=== PATIENT | male | born 1940 | race Caucasian/White ===

== ENCOUNTER 2016-09-04 10:23 | Emergency (ER) | payer MEDICARE ==
--- NOTE | 2016-09-04 10:54 | Emergency Department Record ---
History of Present Illness - General Chief Complaint: Abdominal Pain Stated Complaint: GALLBLADDER ATTACK Time Seen by Provider: 09/04/16 10:47 Source: Patient, RN notes reviewed Mode of Arrival: Ambulatory - History of Present Illness Initial Comments: abdominal pain located in the right upper quad and right flank pain and no cough no congestion. BM times three loose stools. Patient has been having right sided upper abd pain for two weeks and much worse last night . Patient having indigestion and lots of gas. Onset/Timin -: Days(s) Location: RUQ Radiation: Chest, Other Quality: Stabbing Consistency: Constant Improves With: Nothing Worsens With: Nothing Associated Symptoms: Diarrhea, Nausea, Vomiting - Related Data Home Medications Medication Instructions Recorded Confirmed Last Taken Amlodipine Besylate [Norvasc] 10 mg PO DAILY 10/06/14 09/04/16 09/03/16 Omeprazole [Prilosec] 20 mg PO DAILY 10/06/14 09/04/16 09/03/16 Pravastatin Sodium [Pravachol] 40 mg PO DAILY 09/04/16 09/04/16 09/03/16 Rivaroxaban [Xarelto] 20 mg PO DAILY 09/04/16 09/04/16 09/03/16 Sertraline HCl [Zoloft] 100 mg PO DAILY 09/04/16 09/04/16 09/03/16 Tramadol HCl 50 mg PO Q6H 09/04/16 09/04/16 09/03/16 Previous Rx's Medication Instructions Recorded Hydrocodone/Acetaminophen [[place] 1 tab PO Q6H PRN #20 tab 09/04/16 5mg/325mg] Allergies Allergy/AdvReac Type Severity Reaction Status Date / Time No Known Drug Allergies Allergy Verified 10/06/14 08:59 Travel Screening - Travel/Exposure Within Last 30 Days Have you traveled within the last 30 days?: No - Travel/Exposure Within Last Year Have you traveled outside the [place] in the last year?: No - Additonal Travel Details Have you been exposed to anyone with a communicable illness?: No - Travel Symptoms Symptom Screening: None Review of Systems Reviewed: No additional complaints except as noted below Constitutional: Reports: As per HPI. Denies: Chills, Fever, Malaise, Night sweats, Weakness, Weight change Eyes: Reports: As per HPI. Denies: Eye discharge, Eye pain, Photophobia, Vision change ENT: Reports: As per HPI. Denies: Congestion, Dental pain, Ear pain, Epistaxis , Hearing loss, Throat pain Respiratory: Reports: As per HPI. Denies: Cough, Dyspnea, Hemoptysis, Stridor, Wheezes Cardiovascular: Reports: As per HPI. Denies: Arrhythmia, Chest pain, Dyspnea on exertion, Edema, Murmurs, Orthopnea, Palpitations, Paroxysmal nocturnal dyspnea, Rheumatic Fever, Syncope Endocrine: Reports: As per HPI. Denies: Fatigue, Heat or cold intolerance, Polydipsia, Polyuria Gastrointestinal: Reports: As per HPI, Abdominal pain, Diarrhea, Nausea. Denies : Constipation, Hematemesis, Hematochezia, Melena, Vomiting Genitourinary: Reports: As per HPI. Denies: Dysuria, Frequency, Hematuria, Incontinence, Retention, Testicular pain, Testicular mass, Urgency Musculoskeletal: Reports: As per HPI. Denies: Arthralgia, Back pain, Gout, Joint swelling, Myalgia, Neck pain Skin: Reports: As per HPI. Denies: Bruising, Change in color, Change in hair/ nails, Lesions, Pruritus, Rash Neurological: Reports: As per HPI. Denies: Abnormal gait, Confusion, Headache, Numbness, Paresthesias, Seizure, Tingling, Tremors, Vertigo, Weakness Psychiatric: Reports: As per HPI. Denies: Anxiety, Auditory hallucinations, Depression, Homicidal thoughts, Suicidal thoughts, Visual hallucinations Hematological/Lymphatic: Reports: As per HPI. Denies: Anemia, Blood Clots, Easy bleeding, Easy bruising, Swollen glands Past Medical History - SOCIAL HISTORY Smoking Status: Never smoker Drug Use: None - RESPIRATORY Hx Respiratory Disorders: No - CARDIOVASCULAR Hx Cardio Disorders: Yes Hx Deep Vein Thrombosis: Yes (clots in legs) Hx Hypertension: Yes - NEURO Hx Neuro Disorders: No - GI Hx GI Disorders: Yes Hx Reflux: Yes Hx Hiatal Hernia: Yes - Hx Genitourinary Disorders: No - ENDOCRINE Hx Endocrine Disorders: Yes Hx Diabetes: Yes - MUSCULOSKELETAL Hx Musculoskeletal Disorders: Yes Hx Arthritis: Yes - PSYCH Hx Psych Problems: No - HEMATOLOGY/ONCOLOGY Hx Hematology/Oncology Disorders: No Family Medical History Any Significant Family History?: No Hx Heart Disease: Father Hx Stroke: Father Physical Exam - General General Appearance: Alert, Oriented x3, Cooperative, No acute distress - Head Head exam: Normal inspection - Eye Eye exam: Normal appearance, PERRL Pupils: Normal accommodation - ENT ENT exam: Normal exam, Mucous membranes moist, Normal external ear exam, Normal orophraynx, TM's normal bilaterally Ear exam: Normal external inspection. negative: External canal tenderness Nasal Exam: Normal inspection. negative: Discharge, Sinus tenderness Mouth exam: Normal external inspection, Tongue normal Teeth exam: Normal inspection. negative: Dental caries Throat exam: Normal inspection. negative: Tonsillar erythema, Tonsillar exudate - Neck Neck exam: Normal inspection, Full ROM. negative: Tenderness - Respiratory Respiratory exam: Normal lung sounds bilaterally. negative: Respiratory distress - Cardiovascular Cardiovascular Exam: Regular rate, Normal rhythm, Normal heart sounds - GI/Abdominal GI/Abdominal exam: Soft, Normal bowel sounds, Tenderness (right upper quad, right flank pain) - Rectal Rectal exam: Deferred - exam: Deferred - Extremities Extremities exam: Normal inspection, Full ROM, Normal capillary refill. negative: Tenderness - Back Back exam: Reports: Normal inspection, Full ROM. Denies: Muscle spasm, Rash noted, Tenderness - Neurological Neurological exam: Alert, Normal gait, Oriented X3, Reflexes normal - Psychiatric Psychiatric exam: Normal affect, Normal mood - Skin Skin exam: Dry, Intact, Normal color, Warm Course Vital Signs 09/04/16 10:26 Temperature 97.7 F Pulse Rate 78 Respiratory 20 Rate Blood Pressure 151/84 Pulse Ox 92 L - Reevaluation(s) Reevaluation #1: patient is feeling better 09/04/16 15:50 Medical Decision Making - Data Complexity MDM Data: Labs Ordered and/or Reviewed, X-Ray Ordered and/or Reviewed (sludge in gall bladder, CT of abd neg), EKG Ordered and/or Reviewed (No acute changes) - Lab Data Result diagrams: 09/04/16 10:50 09/04/16 10:50 Disposition Clinical Impression: Biliary colic Abdominal pain Qualifiers: Abdominal location: right upper quadrant Qualified Code(s): R10.11 - Right upper quadrant pain Disposition: Home, Self-Care Condition: (1) Good Instructions: Biliary Colic (ED) Additional Instructions: follow up with Dr. Garcia in one week return to ED if worse avoid fatty foods Prescriptions: Hydrocodone/Acetaminophen [[place] 5mg/325mg] 1 tab PO Q6H PRN #20 tab PRN Reason: Pain - General Forms: Patient Portal Access Time of Disposition: 15:47
[2016-09-04] MEDS: ONDANSETRON HCL IV 4 MG/2 ML VIAL IVP ONE (10:55)
[2016-09-04 11:14] LABS: BASO % 0.7 % (0-6); EOS % 1.5 % (0-6); GRAN % 68.5 % (47-80); HEMATOCRIT 45.8 % (42.0-52.0); LYMPH % 18.5 % (16-45); MEAN CELL VOLUME 93.7 fl (81-97); MEAN CORPUSCULAR HEMOGLOBIN 30.7 pg (27-33); MEAN CORPUSCULAR HGB CONC 32.8 g/dl (32-36); MEAN PLATELET VOLUME 9.2 fl (7.4-10.4); MONO % 10.8 % (0-9); PLATELET COUNT 219 K/uL (130-400); RED BLOOD COUNT 4.89 M/uL (4.40-5.70); RED CELL DISTRIBUTION WIDTH 13.6 % (11.5-14.5); WHITE BLOOD COUNT W/O DIFF 6.8 K/uL (4.2-12.2)
[2016-09-04] MEDS: 0.9 % SODIUM CHLORIDE 1000ML 1,000 ML IV PRN (11:15)
[2016-09-04 11:16] LABS: URINE APPEARANCE CLEAR; URINE BILIRUBIN NEGATIVE (NEGATIVE); URINE BLOOD MODERATE (NEGATIVE); URINE COLOR YELLOW; URINE GLUCOSE (UA) NEGATIVE (NEGATIVE); URINE KETONE NEGATIVE (NEGATIVE); URINE LEUKOCYTE ESTERASE NEGATIVE (NEGATIVE); URINE NITRITE NEGATIVE (NEGATIVE); URINE PROTEIN TRACE (NEGATIVE); URINE UROBILINOGEN 0.2 E.U./dL (0.20 - 1.00)
[2016-09-04 11:27] LABS: ALBUMIN 4.2 gm/dL (3.5-5.0); ALKALINE PHOSPHATASE 74 U/L (38-126); ALT/SGPT 26 U/L (21-72); ANION GAP 8.5 (7-16); AST/SGOT 20 U/L (17-59); BILIRUBIN,TOTAL 0.66 mg/dL (0.2-1.3); BLOOD UREA NITROGEN 20 mg/dL (9-20); CARBON DIOXIDE 24.5 mmol/L (22-30); CREATININE 0.9 mg/dL (0.66-1.25); EST GLOMERULAR FILTRATION RATE > 60 ml/min; GLUCOSE,RANDOM 134 mg/dL (70-110); LIPASE 93 U/L (23-300); TOTAL PROTEIN 7.1 gm/dL (6.3-8.2)
[2016-09-04 11:29] LABS: URINE BACTERIA NONE SEEN; URINE EPITHELIAL CELLS 0 - 2 (FEW); URINE WBC 0 - 2 (0-2/hpf)
[2016-09-04 12:25] LABS: CKMB 0.7 ug/L (0-6); TROPONIN I < 0.012 ng/mL (0.00-0.034)
== END 2016-09-04 16:05 | disposition home or self-care (01) ==
LOC: ER 10:23
DX: K80.50 Calculus of bile duct without cholangitis or cholecystitis without obstruction (principal); R10.11 Right upper quadrant pain; R19.7 Diarrhea, unspecified; R11.2 Nausea with vomiting, unspecified; R07.9 Chest pain, unspecified; I10 Essential (primary) hypertension; E11.9 Type 2 diabetes mellitus without complications
CPT/HCPCS: 99284 ×2; 96374; 83690; 85025; 80076; 82553; 84484; 80048; 81001; 71020; 76700; 74176; 93005; 93010; J2405

== ENCOUNTER 2016-09-23 07:27 | Day surgery (SDC) | payer MEDICARE ==
[~2016-09-23 07:27] MED LIST: ACETAMINOPHEN 1000MG/100 ML PREMIX IV ONE; FAMOTIDINE 20MG TABLET PO ONE; MECLIZINE 25 MG TABLET PO ONE; METOCLOPRAMIDE 10 MG TABLET PO ONE
[2016-09-23 08:04] LABS: INR 0.99; PROTHROMBIN TIME (PATIENT) 11.2 SECONDS (9.5-12.1)
[2016-09-23] MEDS ORDERED: TRAMADOL HCL 50 MG TABLET PO ONE (14:00)
[2016-09-23] MEDS ORDERED: DEXAMETHASONE 4 MG/ML 1ML VIAL IVP ONE (14:00)
[2016-09-23] MEDS ORDERED: ONDANSETRON HCL IV 4 MG/2 ML VIAL IVP ONE (14:00)
[2016-09-23] MEDS ORDERED: HYDRALAZINE 20MG/ML VIAL IV ONE (14:00)
[2016-09-23] MEDS ORDERED: DESFLURANE 240 ML BTL INH ONE (14:00)
[2016-09-23] MEDS ORDERED: LABETALOL HCL 5MG/ML, 20ML VIAL SIVP ONE (14:00)
[2016-09-23] MEDS ORDERED: BUPIVACAINE 0.25% W/EPI MPF 30ML VIAL IVP ONE (14:00)
[2016-09-23] MEDS ORDERED: KETOROLAC 30 MG/ML VIAL IVP ONE (14:00)
[2016-09-23] MEDS ORDERED: ROCURONIUM BROMIDE 50MG/5ML VIAL IV ONE (14:00)
[2016-09-23] MEDS ORDERED: FENTANYL PF 100MCG/2ML VIAL IV ONE (14:00)
[2016-09-23] MEDS ORDERED: MIDAZOLAM HCL 2MG/2ML VIAL IV ONE (14:00)
[2016-09-23] MEDS ORDERED: SUCCINYLCHOLINE 20 MG/ML 10ML IVP ONE (14:00)
[2016-09-23] MEDS ORDERED: HYDROMORPHONE HCL 2 MG/ML VIAL IV ONE (14:00)
[2016-09-23] MEDS ORDERED: NEOSTIGMINE 1 MG/1 ML,10ML VIAL IV ONE (14:00)
[2016-09-23] MEDS ORDERED: PROPOFOL 10 MG/ML VIAL IV ONE (14:00)
--- NOTE | 2016-09-24 14:45 | Operative Note ---
DATE OF SURGERY: 09/23/2016 Surgeon: Hiren Garcia MD Referring: Delmis Snow MD PREOPERATIVE DIAGNOSIS: Cholecystitis. POSTOPERATIVE DIAGNOSIS: Cholecystitis. OPERATION: Laparoscopic cholecystectomy. Indication: The patient is a 76-year-old male who has had ongoing right subcostal postprandial pain. Imaging did reveal gallbladder dysfunction. We did discuss cholecystectomy versus medical management and he desires surgical intervention. Risks included bleeding, infection, ductal injury, possible conversion to open, postoperative bile leak and he understands this fully. Therefore, consent was signed, questions answered. PROCEDURE: He was taken to the operating room and placed in the supine position. General anesthesia was administered per Department of Anesthesia. The patient's abdomen was prepped and draped in the usual fashion. The patient had a prior omphalectomy from hernia repairs and therefore we did elect to go above the region where the navel was. This was anesthetized with a total of 2 mL of 0.25% Sensorcaine with epinephrine. A 2 cm incision was made. This was carried down to the anterior rectus fascia. This was incised. Bairon clamps were placed on the fascial edges and brought up into the wound. Stay sutures of 0 Vicryl placed. The posterior rectus sheath was identified, incised and the peritoneal cavity was entered bluntly. At this time, a 10 mm blunt Violette port was placed and adequate pneumoperitoneum established. Under direct visualization, an additional 5 mm epigastric and two 5 mm right subcostal ports were placed. The gallbladder was covered with omentum. This was taken down bluntly. Further cephalad, lateral traction was applied. Visualization still was limited even with an angled lens. Therefore, I did have to place a 5th port, holding down the patient's transverse colon and omentum. Here, our exposure was excellent. The hepatocystic triangle was gently dissected out. There is no aberrant anatomy. No posterior ductal structures. Cystic duct and cystic artery were clearly identified. We did release the distal half of the gallbladder form the cystic plate, exposing our retro space. The cystic artery was taken nupur using the Harmonic. The cystic duct was triply clipped and cut in the standard fashion; it was then taken off the liver bed. This was then extracted infraumbilically. The right upper quadrant was rechecked. We did use about 500 mL of irrigation due to some mild bilious spillage. This was aspirated until clear. There was no bile leak, there was no bleeding. There was no bile injury noted. The patient was leveled out and pneumoperitoneum was released. All ports removed. The fascia was closed with 0 Vicryl in a [id number] fashion. The skin and all ports was closed with 4-0 Vicryl. He was taken to recovery room in satisfactory condition. Final pathology pending. CC: Delmis Snow MD MTDD
== END 2016-09-23 11:45 | disposition home or self-care (01) ==
LOC: SUR 07:27
PROVIDERS: ATTEND Surgery
DX: K81.9 Cholecystitis, unspecified (principal); E78.00 Pure hypercholesterolemia, unspecified; Z79.01 Long term (current) use of anticoagulants; I10 Essential (primary) hypertension
CPT/HCPCS: 85610; 85730; J0330; J1885; J2405; J2710

== ENCOUNTER 2017-01-28 11:13 | Emergency (ER) | payer MEDICARE ==
[2017-01-28] MEDS: ONDANSETRON HCL IV 4 MG/2 ML VIAL IVP ONE ×2 (11:36→13:49)
[2017-01-28] MEDS: 0.9 % SODIUM CHLORIDE 1,000 ML BAG IV ONE (11:36)
[2017-01-28] MEDS: MECLIZINE 25 MG TABLET PO ONE (11:36)
--- NOTE | 2017-01-28 11:41 | Emergency Department Record ---
History of Present Illness - General Chief Complaint: Dizziness Stated Complaint: LIGHTHEADED,BLOOD IN STOOL Time Seen by Provider: 01/28/17 11:15 Source: Patient, Family Mode of Arrival: Wheelchair Limitations: No limitations - History of Present Illness Initial Comments: 76 yo male presents from the [facility] with nausea, dizziness, vomiting. He reports he has had frequent dizziness for about 3 years. He states he has seen his PCP without any specific cause. The last 3 days his dizziness has worsened significantly. He has had associated nausea, some vomiting.. No chest pain or shortness of breath but he feels fatigue. He has upset stomach with nausea and little appetite. No fevers or chills. He was seen in the [facility] with lab tests and UA being performed. His was lightheaded with standing and referred to the ED. No speech changes, vision changes, weakness on one side or the other. The orthostatics in the [facility] did not demonstrate any tachycardia or hypotension. MD Complaint: Dizziness -: Unknown Timing: Gradual onset, Intermittent Description: Lightheadedness, Nausea History of Same: No History of Trauma: No Improves With: Nothing Worsens With: Nothing Associated Symptoms: Loss of appetite, Weakness - [place] Coma Scale Eye Response: (4) Open spontaneously Motor Response: (6) Obeys commands Verbal Response: (5) Oriented Cuong Total: 15 - Symptoms of Stroke Symptoms of stroke: Dizziness - Related Data Allergies Allergy/AdvReac Type Severity Reaction Status Date / Time No Known Drug Allergies Allergy Verified 01/28/17 11:24 Travel Screening - Travel/Exposure Within Last 30 Days Have you traveled within the last 30 days?: No Review of Systems Constitutional: Reports: Malaise, Weakness. Denies: Chills, Fever Eyes: Denies: Eye discharge, Eye pain, Photophobia, Vision change ENT: Denies: Congestion, Throat pain Respiratory: Denies: Cough, Dyspnea, Hemoptysis, Stridor, Wheezes Cardiovascular: Denies: Chest pain, Dyspnea on exertion, Palpitations, Syncope Endocrine: Reports: Fatigue. Denies: Polydipsia, Polyuria Gastrointestinal: Reports: As per HPI, Nausea, Vomiting. Denies: Abdominal pain (nausea with decreased appetite), Hematemesis, Hematochezia Genitourinary: Denies: Dysuria, Frequency, Hematuria Musculoskeletal: Denies: Arthralgia, Back pain, Myalgia Skin: Denies: Bruising, Change in color, Rash Neurological: Reports: Headache, Vertigo. Denies: Abnormal gait, Confusion, Numbness, Paresthesias, Tingling, Tremors, Weakness Psychiatric: Denies: Anxiety, Suicidal thoughts Hematological/Lymphatic: Denies: Easy bleeding, Easy bruising, Swollen glands Past Medical History - SOCIAL HISTORY Smoking Status: Former smoker Alcohol Use: None Drug Use: None - RESPIRATORY Hx Respiratory Disorders: No - CARDIOVASCULAR Hx Cardio Disorders: Yes Hx Deep Vein Thrombosis: Yes Hx Hypertension: Yes - NEURO Hx Neuro Disorders: Yes Hx Dizziness: Yes Hx TIA: Yes - GI Hx GI Disorders: Yes Hx Abdominal Pain: Yes Hx Reflux: Yes Hx Hiatal Hernia: Yes Hx Nausea/Vomiting: Yes - Hx Genitourinary Disorders: Yes Comment:: FREQUENCY WITH URINATION - ENDOCRINE Hx Endocrine Disorders: No Hx Diabetes: (DIET AND WENT AWAY) - MUSCULOSKELETAL Hx Musculoskeletal Disorders: Yes Hx Arthritis: Yes - PSYCH Hx Psych Problems: Yes Hx Behavior Problems: Yes (MED HELPS) - HEMATOLOGY/ONCOLOGY Hx Hematology/Oncology Disorders: No Family Medical History Any Significant Family History?: Yes Hx Heart Disease: Father Hx Stroke: Father Physical Exam - General General Appearance: Alert, Oriented x3, Cooperative, No acute distress Limitations: No limitations - Head Head exam: Normal inspection - Eye Eye exam: Normal appearance, PERRL, EOMI. negative: Conjunctival injection, Nystagmus, Periorbital swelling - ENT ENT exam: Normal exam, Mucous membranes moist, Normal external ear exam, Normal orophraynx Ear exam: Normal external inspection. negative: External canal tenderness Nasal Exam: Normal inspection. negative: Discharge, Sinus tenderness Mouth exam: Normal external inspection, Tongue normal Teeth exam: Normal inspection. negative: Dental caries Throat exam: Normal inspection. negative: Tonsillar erythema, Tonsillar exudate - Neck Neck exam: Normal inspection, Full ROM. negative: Tenderness - Respiratory Respiratory exam: Normal lung sounds bilaterally. negative: Respiratory distress, Rhonchi, Stridor, Wheezes - Cardiovascular Cardiovascular Exam: Regular rate, Normal rhythm, Normal heart sounds. negative : Diastolic murmur, Systolic murmur Peripheral Pulses: 2+: Radial (R), Radial (L) - GI/Abdominal GI/Abdominal exam: Soft, Normal bowel sounds. negative: Distended, Guarding, Rebound, Rigid, Tenderness - Rectal Rectal exam: Deferred - exam: Deferred - Extremities Extremities exam: Normal inspection, Full ROM, Normal capillary refill. negative: Pedal edema, Tenderness - Back Back exam: Reports: Normal inspection, Full ROM. Denies: CVA tenderness (R), CVA tenderness (L), Muscle spasm, Paraspinal tenderness, Rash noted, Tenderness , Vertebral tenderness - Neurological Neurological exam: Abnormal gait (very unstable with standing and attempt with walking), Alert, CN II-XII intact, Oriented X3, Reflexes normal, Other (No dysmetria, no difficulty with lower extremety coordination, no PND of upper or lower, normal FTN). negative: Altered, Motor sensory deficit, Normal gait - Psychiatric Psychiatric exam: Normal affect, Normal mood. negative: Agitated, Anxious - Skin Skin exam: Dry, Intact, Normal color, Warm Course Vital Signs 01/28/17 11:16 Temperature 98.6 F Pulse Rate 80 Respiratory 18 Rate Blood Pressure 140/91 Pulse Ox 93 L - Reevaluation(s) Reevaluation #1: The labs from the [facility] were reviewed No acute changes of the CBC or BMP Blood noted in the UA but no sign of infection No tachycardia or hypotension with orthostatics 01/28/17 11:56 09/17/16 MRI Brain at [facility] reviewed and scanned into the [facility] system. 01/28/17 15:11 Reevaluation #2: The head CT and Abdominal CT were reviewed No acute changes. The head CT is stable from prior. Abdomen without renal stone, calcified aorta noted. No new or acute findings. 01/28/17 12:47 Reevaluation #3: ambulation trial: Very unstable on his feet. Unable to ambulate without assistance I discussed this with the family I recommend transfer for further work up of the acute on chronic dizziness 01/28/17 14:16 Reevaluation #4: I SW Dr Jacobson of Stroke and Dr Araiza of ED at [facility] The patient is accepted for ED to ED transfer. 01/28/17 14:34 EKG 1440 NSR, rate 81 intervals RBBB axis left, ST NS changes with BBB, comparison on 09/04/16 ICBBB. 01/28/17 14:48 Disposition Disposition: Transfer Clinical Impression: Dizziness Hematuria Qualifiers: Hematuria type: other microscopic Qualified Code(s): R31.29 - Other microscopic hematuria Disposition: Acute Care Hospital Transfer Transfer To: [facility] Reason For Transfer: Dizziness Accepting Physician: Teodora Jacobson Time Discussed w/Accepting Physician: 14:37 Condition: (2) Stable Referrals: YANELIS MADRID M.D. [MEDICAL DOCTOR] - [facility] Specialty Clinics [Provider Group] SAIDA MURPHY [] - CHRIST SHAFER [] - Forms: Patient Portal Access Time of Disposition: 14:37 Quality - Quality Measures Quality Measures: N/A - Blood Pressure Screening Does Patient Have Any of the Following: No Blood Pressure Classification: Hypertensive Reading Systolic Measurement: 140 Diastolic Measurement: 91 Screening for High Blood Pressure: < Pre-Hypertensive BP, F/U Documented > [ [id number]] Pre-Hypertensive Follow-up Interventions: Referral to alternative/primary care provider.
--- NOTE | 2017-01-29 09:58 | CT SCAN REPORT ---
EXAM: HEAD CT WITHOUT CONTRAST HISTORY: VERTIGO, GENERALIZED MALAISE. TECHNIQUE: Contiguous axial images from the cerebral convexities to the foramen magnum were obtained without contrast. Comparison: Head CT 10/06/14. FINDINGS: Moderate generalized atrophy of the brain. Retrocerebellar CSF density to the right of midline measuring 4.4 x 2.1 cm consistent with benign arachnoid cyst, unchanged. No acute intracranial hemorrhage, mass effect, or midline shift. Extensive decreased attenuation in the subcortical and periventricular white matter of the cerebral hemispheres. Remote lacunar infarcts in the lentiform nuclei unchanged. No CT evidence of large acute territorial infarct. Remote lacunar infarct of the right thalamus which was not seen on the prior study. The ventricles, basal cisterns, and sulci are within normal limits. The osseous structures are unremarkable. Bilateral cataract surgical change. The paranasal sinuses are unremarkable. IMPRESSION: 1. NO ACUTE INTRACRANIAL PROCESS. 2. 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 3. BENIGN ARACHNOID CYST. 4. REMOTE LACUNAR INFARCT RIGHT THALAMUS. JOB NUMBER: [id number] [facility]
--- NOTE | 2017-01-29 10:04 | CT SCAN REPORT ---
EXAM: ABDOMEN AND PELVIS CT WITHOUT CONTRAST HISTORY: ACUTE GI BLEED, MALAISE, DIARRHEA. TECHNIQUE: Contiguous axial images from the lung bases to the symphysis pubis were obtained without IV contrast. Comparison: Abdomen and pelvis CT 09/04/16. FINDINGS: Mild subpleural scarring at both lung bases. The liver and spleen are unremarkable. Unilocular cyst mid left kidney measures 14 mm. Subsegmental cyst mid right kidney. No renal calculi or hydronephrosis. The adrenals and pancreas are normal. The gallbladder is absent. The visualized loops of small and large bowel are of normal caliber with no wall thickening. The appendix is not seen although there are no pericecal inflammatory changes. Mild colonic diverticulosis with no evidence of acute diverticulitis. Severe aortoiliac calcification with minimal ectasia of the infrarenal abdominal aorta measuring 2.6 cm. No free intraperitoneal fluid or adenopathy. The urinary bladder is unremarkable. The abdominal wall is unremarkable. No lytic or blastic osseous lesions. IMPRESSION: 1. NO ACUTE INFLAMMATORY PROCESS OF THE ABDOMEN OR PELVIS. NO INTESTINAL OBSTRUCTION. 2. SEVERE AORTIC CALCIFICATION WITH MILD ECTASIA OF THE INFRARENAL ABDOMINAL AORTA. 3. MILD COLONIC DIVERTICULOSIS WITH NO EVIDENCE OF DIVERTICULITIS. JOB NUMBER: [id number] [facility]
== END 2017-01-28 16:02 | disposition short-term general hospital (02) ==
LOC: ER 11:13
DX: R42 Dizziness and giddiness (principal); R31.29 Other microscopic hematuria; R05 Cough; R11.2 Nausea with vomiting, unspecified; R26.81 Unsteadiness on feet; R53.83 Other fatigue; I10 Essential (primary) hypertension; Z87.891 Personal history of nicotine dependence; Z86.73 Personal history of transient ischemic attack (TIA), and cerebral infarction without residual deficits
CPT/HCPCS: 99285 ×2; 96374; 96375; 96361; 70450; 74176; 93005; 93010; J2405; J7030

== ENCOUNTER 2017-02-24 11:15 | Observation (INO) | payer MEDICARE ==
--- NOTE | 2017-02-24 11:58 | Emergency Department Record ---
History of Present Illness - General Chief Complaint: Hypertension Stated Complaint: hypertension Time Seen by Provider: 02/24/17 11:47 Source: Patient Mode of Arrival: Ambulatory Limitations: No limitations - History of Present Illness Initial Comments: 77 yo male presents with concerns about his blood pressure, dizziness, slurring of the speech. Yesterday in the afternoon he did not feel well. His family noted he was having trouble walking and slurred his speech. He has mixed up words in conversation at times as well. No falls. No fevers. He did appear unsteady with his walking. He has had chronic dizziness. He was seen in the ED at [facility] recently and transferred to [facility] for admission and neurology consultation. Onset/Timin -: Days(s) Timing: Unsure Description: Difficulty walking, Lightheadedness, Off-balance History of Same: Yes Severity: Mild Improves With: Nothing Worsens With: Nothing - Cuong Coma Scale Eye Response: (4) Open spontaneously Motor Response: (6) Obeys commands Verbal Response: (5) Oriented Cuong Total: 15 - Symptoms of Stroke Onset of Symptoms Date: 02/23/17 Onset of Symptoms Time: 15:00 Symptom Onset Unknown: Yes - Related Data Home Medications Medication Instructions Recorded Confirmed Last Taken Amlodipine Besylate/Benazepril 1 each PO QHS 02/24/17 02/24/17 02/23/17 22:00 [Lotrel 5-40 mg Capsule] Omeprazole [Omeprazole] 40 mg PO DAILYAC 02/24/17 02/24/17 Unknown Allergies Allergy/AdvReac Type Severity Reaction Status Date / Time No Known Drug Allergies Allergy Verified 02/24/17 11:26 Travel Screening - Travel/Exposure Within Last 30 Days Have you traveled within the last 30 days?: No - Travel/Exposure Within Last Year Have you traveled outside the [place] in the last year?: No - Additonal Travel Details Have you been exposed to anyone with a communicable illness?: No - Travel Symptoms Symptom Screening: None Review of Systems Constitutional: Reports: Malaise, Weakness. Denies: Chills, Fever Eyes: Denies: Eye discharge, Eye pain, Photophobia, Vision change ENT: Denies: Congestion, Throat pain Respiratory: Denies: Cough, Dyspnea, Hemoptysis, Stridor, Wheezes Cardiovascular: Denies: Chest pain, Palpitations, Syncope Endocrine: Denies: Fatigue, Polydipsia, Polyuria Gastrointestinal: Denies: Abdominal pain, Diarrhea, Nausea, Vomiting Musculoskeletal: Denies: Arthralgia, Back pain, Gout, Myalgia, Neck pain Skin: Denies: Bruising, Change in color, Rash Neurological: Reports: Abnormal gait, Confusion, Vertigo, Weakness. Denies: Tremors Psychiatric: Denies: Anxiety Hematological/Lymphatic: Denies: Blood Clots, Easy bleeding, Easy bruising, Swollen glands Past Medical History - SOCIAL HISTORY Smoking Status: Former smoker Alcohol Use: None Drug Use: None - RESPIRATORY Hx Respiratory Disorders: No Hx of CPAP: Yes (WON'T WEAR C PAP) - CARDIOVASCULAR Hx Cardio Disorders: Yes Hx Deep Vein Thrombosis: Yes Hx Hypertension: Yes - NEURO Hx Neuro Disorders: Yes Hx CVA: Yes Hx Dizziness: Yes (recent admission to [facility]) Hx TIA: Yes - GI Hx GI Disorders: Yes Hx Abdominal Pain: Yes Hx Reflux: Yes Hx Hiatal Hernia: Yes Hx Nausea/Vomiting: Yes - Hx Genitourinary Disorders: Yes Comment:: FREQUENCY WITH URINATION - ENDOCRINE Hx Endocrine Disorders: No Hx Diabetes: (DIET AND WENT AWAY) - MUSCULOSKELETAL Hx Musculoskeletal Disorders: Yes Hx Arthritis: Yes - PSYCH Hx Psych Problems: Yes Hx Behavior Problems: Yes (MED HELPS) - HEMATOLOGY/ONCOLOGY Hx Hematology/Oncology Disorders: No Family Medical History Any Significant Family History?: Yes Hx Heart Disease: Father Hx Stroke: Father Physical Exam - General General Appearance: Alert, Oriented x3, Cooperative, No acute distress Limitations: No limitations - Head Head exam: Atraumatic, Normocephalic, Normal inspection - Eye Eye exam: Normal appearance, PERRL, EOMI. negative: Conjunctival injection, Nystagmus, Periorbital swelling - ENT ENT exam: Normal exam, Mucous membranes moist Ear exam: Normal external inspection Nasal Exam: Normal inspection Mouth exam: Normal external inspection - Neck Neck exam: Normal inspection - Respiratory Respiratory exam: Normal lung sounds bilaterally. negative: Respiratory distress - Cardiovascular Cardiovascular Exam: Regular rate, Normal rhythm, Normal heart sounds Peripheral Pulses: 2+: Radial (R), Radial (L) - GI/Abdominal GI/Abdominal exam: Soft. negative: Tenderness - Rectal Rectal exam: Deferred - exam: Deferred - Extremities Extremities exam: Normal inspection, Normal capillary refill. negative: Pedal edema, Tenderness - Back Back exam: Reports: Normal inspection, Full ROM. Denies: Muscle spasm, Rash noted, Tenderness - Neurological Neurological exam: Alert, CN II-XII intact, Oriented X3, Reflexes normal, Other (Intact bilateral finger to nose, no difficulty with tracking, no PND. ). negative: Altered, Motor sensory deficit - Psychiatric Psychiatric exam: Normal affect, Normal mood. negative: Agitated, Anxious - Skin Skin exam: Dry, Intact, Normal color, Warm Stroke Assessment - NIH Stroke Scale 1a. Level of Consciousness: (0) Alert 1b. LOC Questions: (0) Answers Correctly 1c. LOC Commands: (0) Performs Tasks Correctly 2. Best Gaze: (0) Normal 3. Visual: (0) No Visual Loss 4. Facial Palsy: (0) Normal Symmetrical Movement 5a. Motor Arm Left: (0) No Drift 5b. Motor Arm Right: (0) No Drift 6a. Motor Leg Left: (0) No Drift 6b. Motor Leg Right: (0) No Drift 7. Limb Ataxia: (0) Absent 8. Sensory: (0) Normal 9. Best Language: (0) No Aphasia 10. Dysarthria: (0) Normal 11. Extinction/Inattention: (0) No Abnormality NIH Stoke Scale Total: 0 NIH Stroke Scale Date: 02/24/17 NIH Stroke Scale Time: 14:00 Course Vital Signs 02/24/17 11:17 Temperature 98.4 F Pulse Rate 67 Respiratory 18 Rate Blood Pressure 134/91 Pulse Ox 96 - Reevaluation(s) Reevaluation #1: No acute changes on the CBC EKG 12:03 NSR rate of 64, PVCs, Intervals Qtc 493, RBBB, ST no acute changes. No acute changes from 01/28/17, 02/24/17 12:24 02/24/17 13:23 The Labs were reviewed No acute changes The orthostatic vitals were reviewed. No drop in BP or increase in HR. He does get dizzy with standing. This was noted on the [facility] DC record/ consult as well that position changes causes symptoms. The head CT was reviewed. No acute stroke. No changes from the December 2016 CT scan. 02/24/17 13:32 The 01/28/17 Neurology consult was reviewed. The summary indicated that findings likely not stroke and more likely multi-factorial. 02/24/17 13:34 The UA was reviewed No acute infection spec gravity 1.020 02/24/17 13:42 the patient is still having dizziness and given his transient confusion he will be admitted for carotid dopplers, ECHO, Cardio consult, PT evaluation, Neuro Checks. Medical Decision Making - Lab Data Result diagrams: 02/24/17 11:40 02/24/17 11:40 Disposition Disposition: Admit Clinical Impression: Dizziness Disposition: Still a Patient at [facility] Decision to Admit: Admit from ER Decision to Admit Date: 02/24/17 Decision to Admit Time: 13:43 Condition: (2) Stable Time of Disposition: 13:43 Quality - Quality Measures Quality Measures: N/A - Blood Pressure Screening Does Patient Have Any of the Following: Active Dx of HTN Blood Pressure Classification: Pre-Hypertensive BP Reading Systolic Measurement: 163 Diastolic Measurement: 87 Screening for High Blood Pressure: Patient Exclusion, Hx of HTN [G9744] Pre-Hypertensive Follow-up Interventions: Referral to alternative/primary care provider.
[2017-02-24 12:13] LABS: BASO % 0.6 % (0-6); GRAN % 63.4 % (47-80); HEMATOCRIT 45.9 % (42.0-52.0); HEMOGLOBIN 15.6 gm/dl (14.0-18.0); LYMPH % 20.3 % (16-45); MEAN CELL VOLUME 91.1 fl (81-97); MEAN PLATELET VOLUME 9.1 fl (7.4-10.4); MONO % 13.7 % (0-9); PLATELET COUNT 192 K/uL (130-400); RED BLOOD COUNT 5.04 M/uL (4.40-5.70); RED CELL DISTRIBUTION WIDTH 14.3 % (11.5-14.5); WHITE BLOOD COUNT W/O DIFF 8.5 K/uL (4.2-12.2)
[2017-02-24 12:37] LABS: ALB/GLOB RATIO 1.4 (1.1-1.8); ALBUMIN 3.9 g/dL (4.0-5.0); ALKALINE PHOSPHATASE 74 U/L (40-129); ALT/SGPT 15 U/L (<41); AST/SGOT 19 U/L (10.0-50.0); BLOOD UREA NITROGEN 16 mg/dL (8-23); CKMB 1.4 ng/mL (<6.73); CREATINE PHOSPHOKINASE 48 U/L (39-308); CREATININE 0.9 mg/dL (0.7-1.2); EST GLOMERULAR FILTRATION RATE > 60 mL/min; GLUCOSE,RANDOM 130 mg/dL (74-109); THYROID STIMULATING HORMONE 1.04 uIU/mL (0.270-4.20); TOTAL PROTEIN 6.6 g/dL (6.6-8.7)
[2017-02-24 12:38] LABS: TROPONIN I < 0.30 ng/mL (0.00-0.300)
[2017-02-24] MEDS ORDERED: SODIUM CHLORIDE 0.9% 500 ML IV ONE (12:45)
[2017-02-24 13:32] LABS: URINE APPEARANCE CLEAR; URINE BILIRUBIN NEGATIVE (NEGATIVE); URINE BLOOD NEGATIVE (NEGATIVE); URINE COLOR DARK YELLOW; URINE GLUCOSE (UA) NEGATIVE (NEGATIVE); URINE KETONE NEGATIVE (NEGATIVE); URINE LEUKOCYTE ESTERASE NEGATIVE (NEGATIVE); URINE NITRITE NEGATIVE (NEGATIVE); URINE PROTEIN NEGATIVE (NEGATIVE); URINE UROBILINOGEN 0.2 E.U./dL (0.20 - 1.00)
[2017-02-24] MEDS ORDERED: TRAMADOL HCL 50 MG TABLET PO SCH (14:00)
[2017-02-24] MEDS ORDERED: TRAMADOL HCL 50 MG TABLET PO PRN (14:30)
--- NOTE | 2017-02-24 14:49 | CT SCAN REPORT ---
EXAM: EMERGENCY HEAD CT HISTORY: VERTIGO, LEFT FACIAL DROOPING WITH CONFUSED SPEECH YESTERDAY. TECHNIQUE: Axial CT scan of the head was performed without IV contrast. Comparison: Head CT 01/28/17. FINDINGS: No definite acute intracranial hemorrhage identified. Generalized atrophy with chronic appearing deep white matter changes as before, nonspecific , but likely representing some chronic small vessel deep white matter ischemic disease. Old lacunar infarcts in the right thalamus and in the region of the basal ganglia as previously noted. No definite acute infarct is seen. Retrocerebellar low attenuation mass on the right also present previously and is presumably an arachnoid cyst as previously reported, appearing essentially unchanged. Opacification of some right mastoid air cells inferiorly was also present previously. Mild membrane thickening right ethmoid as before. IMPRESSION: 1. NO DEFINITE ACUTE INTRACRANIAL HEMORRHAGE OR FOCAL MASS EFFECT EVIDENT. 2. GENERALIZED ATROPHY WITH CHRONIC APPEARING DEEP WHITE MATTER CHANGES AND SMALL OLD INFARCTS IN THE BASAL GANGLIA BILATERALLY AND RIGHT THALAMUS BEFORE. 3. 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 4. OPACIFICATION OF SOME RIGHT MASTOID AIR CELLS INFERIORLY AND MEMBRANE THICKENING IN THE RIGHT ETHMOID BEFORE. JOB NUMBER: [id number] [facility]
[2017-02-24] MEDS ORDERED: ACETAMINOPHEN 500 MG TABLET PO PRN (15:13)
[2017-02-24] MEDS ORDERED: 0.9 % SODIUM CHLORIDE 1000ML 1,000 ML IV PRN (15:13)
[2017-02-24] MEDS ORDERED: FLU VAC QS 2017-18 (INPT, 6MO+) 60MCG/0.5ML IM ONE (17:14)
[2017-02-24] MEDS ORDERED: PNEUM 13-VAL/PF 0.5 ML IM ONE (17:14)
[2017-02-24] MEDS: ASPIRIN 81 MG CHEWABLE TABLET PO SCH (17:40)
[2017-02-24] MEDS: SERTRALINE HCL 50 MG TABLET PO SCH (17:41)
[2017-02-24] MEDS: SIMVASTATIN 20 MG TABLET PO SCH (17:42)
[2017-02-24] MEDS ORDERED: AMLODIPINE BESYLATE 5MG TAB PO SCH (22:00)
[2017-02-24] MEDS ORDERED: BENAZEPRIL 20 MG TABLET PO SCH (22:00)
[2017-02-25] MEDS ORDERED: PANTOPRAZOLE SODIUM 40 MG TABLET PO SCH (07:00)
--- NOTE | 2017-02-25 07:45 | US CAROTID DOPPLER REPORT ---
EXAM: BILATERAL CAROTID DOPPLER ULTRASOUND HISTORY: PATIENT HAS DIZZINESS. TECHNIQUE: Duplex Doppler and real-time hennessy scale ultrasound examination of the bilateral common carotid, external carotid, and internal carotid arteries are provided. Comparison: CT scan of the head dated 02/24/17 is provided. FINDINGS: Right ICA PSV: 66 cm/s Right ICA EDV: 15 cm/s Right CCA PSV: 71 cm/s Right CCA EDV: 12 cm/s Right ECA PSV: 163 cm/s Right ECA EDV: 20 cm/s Right Vertebral Artery PSV: 46 cm/s Right Vertebral Artery EDV: 12 cm/s There is antegrade flow in the vertebral. The right ICA/CCA ratio is 0.9. Left ICA PSV: 75 cm/s Left ICA EDV: 14 cm/s Left CCA PSV: 80 cm/s Left CCA EDV: 15 cm/s Left ECA PSV: 113 cm/s Left ECA EDV: 10 cm/s Left Vertebral Artery PSV: 33 cm/s Left Vertebral Artery EDV: 6 cm/s There is antegrade flow in the vertebral. The left ICA/CCA ratio is 0.9. The right carotid bulb demonstrates moderate calcified atherosclerotic disease which appears to be both soft and hard plaque. No obvious ulcerations are identified. The atherosclerotic disease extends into the proximal right ICA and ECA. The left carotid bulb demonstrates moderate calcified atherosclerotic disease which also demonstrates hard and soft plaque. This plaque extends into the proximal ECA and ICA. There is mild heterogeneous plaque identified within the anterior wall of the left distal common carotid artery. Again no obvious ulcerations are identified. Within the right proximal internal carotid artery, the estimated degree of stenosis is approximately less than 50% due to its peak velocities. Within the left proximal internal carotid artery, the estimated degree of stenosis is also less than 50% due to the peak velocities. IMPRESSION: CALCIFIED AND SOFT PLAQUE IS IDENTIFIED WITHIN THE BILATERAL CAROTID ARTERY BULBS. BASED ON THE PEAK VELOCITIES, THERE IS NO HEMODYNAMICALLY SIGNIFICANT STENOSIS. JOB NUMBER: [id number] [facility]
[2017-02-25] MEDS ORDERED: Non-Formulary MISC (Amlodipine Besylate [Norvasc] 10 MG) PO SCH (10:00)
[2017-02-25] MEDS: SERTRALINE HCL 50 MG TABLET PO SCH (10:13)
[2017-02-25] MEDS: ASPIRIN 81 MG CHEWABLE TABLET PO SCH (10:14)
[2017-02-25] MEDS: SIMVASTATIN 20 MG TABLET PO SCH (10:14)
--- NOTE | 2017-02-25 11:31 | Rehab Evaluation ---
Patient Information - Patient Information Diagnosis: dizziness, trouble walking Ordered Treatment: PT Evaluate and Treat Status: Initial Evaluation History: Detail (The patient presented in ED with complaints of dizziness, slurring speech and trouble walking on 02/25/17. The patient was admitted to the inpatient unit for further testing. The patient is referred to PT for an evaluation.) Past Medical/Surgical Hx: PAST MEDICAL/SURGICAL HISTORY Past Surgical History Appendix UMBILICAL HERNIA REPAIR RIH REPAIR LTKA T/A C-SCOPE cholecysectomy PMH - Respiratory Hx Respiratory Disorders No Hx of CPAP Yes: WON'T WEAR C PAP PMH - Cardiovascular Hx Cardiovascular Disorders Yes Hx Deep Vein Thrombosis Yes Hx Hypertension Yes Hx Transient Ischemic Attacks Yes (TIA) PMH - Neuro Hx Neurological Disorders Yes Hx Cerebrovascular Accident Yes Hx Dizziness Yes: recent admission to [facility] Hx Transient Ischemic Attacks Yes (TIA) PMH - GI Hx Gastrointestinal Disorders Yes Hx Abdominal Pain Yes Hx Gastroesophageal Reflux Yes Hx Hiatal Hernia Yes Hx Nausea/Vomiting Yes PMH - Hx Genitourinary Disorders Yes Comment: FREQUENCY WITH URINATION PMH - Endocrine Hx Endocrine Disorders No Hx Diabetes DIET AND WENT AWAY PMH - Musculoskeletal Hx Musculoskeletal Disorders Yes Hx Arthritis Yes PMH - Psych Hx Psychiatric Problems Yes Hx Behavior Problems Yes: MED HELPS PMH - Hematology/Oncology Hx Hematology/Oncology No Disorders Premorbid Status: Detail (The patient was ambultory with a standard cane at home. The patient was receiving Home Care PT.) Social History: Detail (The patient lives with spouse in a one story home with 3 steps at the enterance and 2 railings. The patient has two bathrooms with walk in showers and elevated toilets. The bathrooms have no grab bars, however they are being installed per patient's . The patient has been ambulatory with standard cane recently due to lightheadness. 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 The patient reports he has had symptoms of lightheadness for a few month and was recently admitted to [facility] where he was assessed for vestibular problems. The patient states the vestibular testing was negative as well as orthostatic hypotension testing. The patient was receiving Home PT for Balance training.) Objective Data - Pain Pain Present: No - Mental Status Patient Orientation: Oriented x3 - Visual Perception Appears within normal limits for therapeutic activities - ROM Within normal limits - Strength/Tone Within normal limits (The patient's UE stength was generally 5/5 throughout. The patient's LE strength was generally 4+ to 5/5 throughout except for bilateral knee extensor strength 4/5.) - Bed Mobility Independent (The patient was independent with supine to sit. The patient did complain of lightheadness with sittting.) - Transfers Independent (Independent with sit to stand, however with increased effort from lower surface of the bed.) - Balance Balance Sitting: Good Balance Standing: Fair (The patient's balance was not formally assessed using a standarsized balance test however the patient stood with a wide base of support and required the standard cane for support.) - Gait Detail (The patient ambulated with standard cane 22 feet x 1 with CG of 1 for safety and to handle IV. The patient's gait pattern was charecterized by wide base of support and decreased stride length bilaterally ( gaurded stepping).) Therapy Assessment - Therapy Assessment Detail (The patient exhibits standing balance steps and unsteady gait pattern. Feel upon discharge for [facility] the patient would benefit from continued Home PT pending outcome of inpatient tests.) Problem List - Problem List Physical Therapy Problem List: Detail (1) Symptoms of lightheadness with positional changes and movement. 2) Balance deficits in standing 3) Gaurded and unsteady gait pattern.) Goals - Goals Physical Therapy Goals: 1) Improve patient's balance statically and dynamical to improve safety with functional activities and decrease fall risk. 2) Improve the patient's gait pattern with or without assistive device to ambulate independently community distances. Prognosis - Prognosis Moderate Plan - Plan Physical Therapy Plan: Patient is to discharge today following testing. Recommend continuation of previous home PT.
[2017-02-25 15:07] LABS: CRYPTOSPORIDIUM PARVUM ANTIGEN NOT DETECTED (NOT DETECT); GIARDIA LAMBLIA ANTIGEN NOT DETECTED (NOT DETECT)
[2017-02-25] MEDS ORDERED: MECLIZINE 25 MG TABLET PO ONE (17:20)
[2017-02-25] MEDS ORDERED: CHOLESTYRAMINE/ASPARTANE PKT PO SCH (17:30)
--- NOTE | 2017-02-25 18:19 | Discharge Note ---
VTE H&P Assessment - Risk for VTE Risk for VTE: Yes Risk Level: Low Risk Assessment Date: 02/25/17 Risk Assessment Time: 18:15 VTE Orders Placed or Will Be Placed: No VTE Reason for No Prophylaxis: Not Indicated (patient going home) Discharge Medications - Discharge Medications Prescriptions: Aspirin [Aspirin EC] 325 mg PO DAILY #100 tablet. Meclizine HCl [Antivert] 25 mg PO Q8H #60 tablet Home Medications: Ambulatory Orders Sertraline HCl [Zoloft] 100 mg PO DAILY 09/04/16 [Last Taken 1 Day Ago ~02/23/17 ] Amlodipine Besylate/Benazepril [Lotrel 5-40 mg Capsule] 1 each PO QHS 02/24/17 [ Last Taken 02/23/17 22:00] Omeprazole 40 mg PO DAILYAC 02/24/17 [Last Taken Unknown] Aspirin [Aspirin EC] 325 mg PO DAILY #100 tablet. 02/25/17 [Last Taken Unknown ] Cholestyramine/Aspartame [Prevalite] 1 pkt PO 1230,1730 pkt 02/25/17 [Last Taken Unknown] Meclizine HCl [Antivert] 25 mg PO Q8H #60 tablet 02/25/17 [Last Taken Unknown] Discharge Note - Date Date of Discharge Note: 02/25/17 Condition: (2) Stable Instructions: Dizziness (GEN) Additional Instructions: follow up with dr. Saida Snow follow up with [facility] ENT Dr. Golden or one of his associates follow up with [facility] neurology for a reconsult for possible TIA symptoms increase aspirin to 325 mg per day restart antivert 25 mg three times a day Referrals: SAIDA SNOW [Primary Care Provider] - Forms: Patient Portal Access
--- NOTE | 2017-02-26 09:11 | History and Physical Report ---
DATE: 02/25/2017 CHIEF COMPLAINT: Dizziness. HISTORY OF PRESENT ILLNESS: This 77-year-old male presented to the emergency department with dizziness and high blood pressure. He initially presented to [facility], sent over to the ER for evaluation. Evaluated by Dr. Michel and admitted to the hospital with a diagnosis of dizziness and hypertension. The patient was recently admitted to [facility] for a workup for a CVA and vertigo. Their discharge papers reveal that the discharge diagnosis was benign postural vertigo. Recommended Antivert and possibly following up with the vertigo clinic at [facility]. The neurology consult was negative for CVA. He had an MRI of the brain with and without contrast which was negative. This was done about 2 weeks ago. He was in the hospital initially for 5 days and then he was home 2-3 days. His blood pressure went up high on Friday and the has a log of the blood pressures being high for quite a while. Friday, 2 days ago, he had some numbness in his face and possible left facial droop, confused speech but that resolved in 15-20 minutes. Actually, that happened on Friday when his blood pressure was high. He came into the ER Friday. After being evaluated by Dr. Michel, he was put in the hospital for echocardiogram and carotid Dopplers, which were both negative, and a cardiology consult with Dr. Duong Hannah. The patient has had dizziness for 2-5 years, chronic dizziness and unsteady gait. He mixed up his words yesterday in conversation. No falls, no fevers. He did appear unsteady with his walk but because of his vertigo especially when he would stand up from a sitting position, the nystagmus of his eyes happened and we rotated his head to the right. He has been asymptomatic with the slurred speech and trouble speaking since admission to the hospital. PAST MEDICAL HISTORY: Hypertension, GERD, hypercholesterolemia, chronic vertigo. Also history of sleep apnea but he will not wear his CPAP. He has had a TIA in the past. He has also had a history of a deep venous thrombosis. He is not on blood thinners at this time. He has benign prostatic hyperplasia and frequent urination. He has arthritis. PAST SURGICAL HISTORY: Appendectomy, umbilical hernia repair, left total knee replacement, T&A, tonsils and adenoids removed, and RIH repair. ALLERGIES: No known allergies. MEDICATIONS: On admission: 1. Amlodipine/benazepril (Lotrel) 5/40 once at h.s. 2. Omeprazole 40 mg daily. 3. Aspirin 81 mg daily. 4. Tramadol 50 mg q.6 h. p.r.n. 5. Sertraline 100 mg daily. 6. Pravastatin 40 mg daily. REVIEW OF SYSTEMS: HEENT: See the chief complaint. He has nystagmus and vertigo when he goes from a sitting to a standing position looking to the right. Cardiovascular No chest pain, palpitations, or orthopnea. No dyspnea. Respiratory: No cough, cold, or congestion. Did smoke but stopped 25 years ago. Gastrointestinal: No nausea, vomiting, diarrhea, black stools, or bloody stools. Genitourinary: No dysuria, hematuria, frequency, or burning on urination. Musculoskeletal: No joint or bone abnormalities. Neurological: He has had previous TIAs but no long-term CVA. He has been worked up by Neurology at [facility]; does not seem to be happy with that workup. Endocrine: No diabetes or thyroid disease. Integument: No rash, ulcers, change in moles, or yellow skin. PHYSICAL EXAMINATION: VITALS: Height 5 feet 11 inches, weight 246 pounds. Temperature 97.9, pulse 59, blood pressure 122/66, respiratory rate 18, pulse ox 96% on room air. HEENT: Pupils are equal, round, and reactive to light and accommodation. Extraocular muscles are intact. Throat is clear. Nose is clear. Tympanic membranes are hennessy. NECK: Supple. No jugular venous distention. No hepatojugular reflux. No carotid bruits. Thyroid is smooth. CARDIOVASCULAR: Regular rate and rhythm without murmurs, clicks, rubs, or gallops. RESPIRATORY: Clear to auscultation and percussion. ABDOMEN: Soft, nontender. No hepatosplenomegaly, no masses, no tenderness. Bowel sounds are active. No bruits. EXTREMITIES: No pitting edema. No cyanosis, no clubbing. Full range of motion. Peripheral pulses are good. BREASTS: Normal male breasts. RECTAL: Exam deferred. GENITALIA: Deferred. NEUROLOGIC: Cranial nerves II-XII intact. No gross defects. Sensation normal, strength normal. Deep tendon reflexes equal bilaterally with Babinski negative. When he stood up, he did have nystagmus going to the right. When he rotated his head to the right, nystagmus and dizziness was worse. It was a spinning sensation. MENTAL STATUS: Alert and oriented x3. IMPRESSION: 1. Benign postural vertigo. 2. Hypertension. 3. Chronic vertigo. 4. Possible transient ischemic attack. 5. History of gastroesophageal reflux disease. 6. History of hypercholesterolemia. PLAN: The patient has seen Cardiology, Dr. Duong Hannah, and having an echocardiogram and a carotid Doppler done. NILESH
--- NOTE | 2017-02-26 10:23 | Medical Records Consult ---
DATE OF CONSULTATION: 02/25/17 INDICATION: Dizziness and hypertension. Mr. Michel is a 77-year-old gentleman who according to him has had lightheadedness and dizziness for the last five years has been evaluated by [facility] in the past as well and recently was admitted to [facility] for about five days. The patient was then told that he has benign positional vertigo. The patient was at home and started slurring his speech and when his blood pressure was checked it was very elevated at 180 so his brought him to the Emergency Department. The patient denies any chest pain. He denies any palpitations. He denies any shortness of breath. The patient used to be on anti-hypertensives which was Amlodipine as well as Lotensin, but he was taken off of that at [facility] because of his dizziness. The patient has also had a shuffling gait for which he has been working with physical therapy at home three times a week. The patient did have an echocardiogram performed today as well. He also had a carotid Duplex performed as well. HOME MEDICATIONS: His home medications were Omeprazole 40 mg daily and Amlodipine/Benazepril 5/40 mg daily, however, he hasn't been taking the anti- hypertensives. SOCIAL HISTORY: The patient lives with his and denies any illicit drug use. He denies any smoking history. ALLERGIES: No known drug allergies. REVIEW OF SYSTEMS: The patient denies any fevers or chills. He complains of lightheadedness and dizziness as explained in the HPI, but denies any bleeding issues. He doesn't have any history of diabetes or hypothyroidism. PHYSICAL EXAMINATION: Mr. Michel is a delightful 77-year-old gentleman who is laying comfortably in bed. He is not in any apparent distress. He is alert and oriented times three. is at bedside. Vital signs show a blood pressure of 134/91 mmHg and a heart rate of 67 b.p.m. with a respiratory rate of 15 per minute and a temperature of 98.4 degrees Fahrenheit. HEENT: Normocephalic, atraumatic. Extraocular muscles are intact. NECK: Supple. CVS: He has normal S1 and S1. He has no JVD. No pedal edema. RESPIRATORY: His lungs are clear to auscultation bilaterally. ABDOMEN: Soft and nontender. NEUROLOGICAL: Nonfocal. LABORATORY DATA: Shows a white count of 8.5, hemoglobin of 15.6, hematocrit of 45.9, platelet count of 192, sodium of 138, potassium of 3.8, chloride of 100, CO2 of 25, BUN of 16, creatinine of 0.9, blood glucose of 130. EKG shows a sinus rhythm with right bundle branch block and left anterior fascicular block. He has borderline first degree AV block with a DE interval of 225 milliseconds, heart rate is 64 b.p.m. on this ECG. There are no significant ST or T-wave changes. The patient also underwent an echocardiogram in which has has normal left ventricular systolic function and no valid lipid pathology was identified. ASSESSMENT AND PLAN: 1. HYPERTENSION. THE PATIENT'S BLOOD PRESSURE WAS ELEVATED MOST LIKELY BECAUSE OF HIM NOT TAKING THE ANTI-HYPERTENSIVES. HIS AMLODIPINE HAS BEEN RESUMED AND HIS BLOOD PRESSURE HAS NORMALIZED. IT IS POSSIBLE THAT THE SLURRING OF SPEECH WAS ALSO BECAUSE OF THE SIGNIFICANTLY ELEVATED BLOOD PRESSURE. THE PATIENT AT THIS POINT IN TIME DOES NOT APPEAR TO HAVE ANY FOCAL NEUROLOGICAL DEFICITS. REASSURANCE WAS PROVIDED. HIS ECHOCARDIOGRAM ALSO SHOWS NORMAL LV FUNCTION. HIS CARDIO-BIOMARKERS ARE WITHIN NORMAL LIMITS AND HIS EKG DOES NOT SHOW ANY ACUTE CHANGES. I DO NOT FEEL THE NEED FOR ANY CARDIAC WORK-UP AT THIS POINT IN TIME. 2. THE PATIENT HAS CHRONIC VERTIGO AND AT ONE POINT IN TIME WAS ALSO TOLD TO FOLLOW-UP WITH THE VERTIGO CLINIC AT [facility]. I WOULD RECOMMEND HIM FOLLOWING UP WITH NEUROLOGY FOR THAT AND I DO AGREE WITH HIM BEING PUT ON ANTIVERT DR. DERAS IS PLANNING TO DO. 3. THE PATIENT IS STABLE FROM A CARDIAC STANDPOINT FOR DISCHARGE. I WILL SIGN OFF. JOB NUMBER: [id number] [facility]
== END 2017-02-25 06:50 | disposition home or self-care (01) ==
LOC: ER 11:15 → INTOOBSV 14:16 → MEDSURG 14:16
PROVIDERS: ADMIT Internal Medicine; ATTEND Emergency Medicine
DX: H81.10 Benign paroxysmal vertigo, unspecified ear (principal); R42 Dizziness and giddiness; I10 Essential (primary) hypertension; E78.00 Pure hypercholesterolemia, unspecified; Z86.73 Personal history of transient ischemic attack (TIA), and cerebral infarction without residual deficits
CPT/HCPCS: 93041; 99285 ×2; 96360; 82550; 83735; 87329; 85025; 82553; 84484; 80053; 81003; 84443; 87493; 93880; 70450; 93005; 93010; 90670; 90686; G0378 ×2; G8978; G8979; G8980; 99220